=== PATIENT | female | born 2000 | race Caucasian/White ===

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

== ENCOUNTER 2021-02-16 16:55 | Emergency (ER) | payer BC, SELFPAY ==
--- NOTE | 2021-02-16 17:02 | ED.GENADULT ---
HPI - General Adult General Chief complaint: Upper Respiratory Infection Stated complaint: Sore throat,Runny nose Time Seen by Provider: 02/16/21 17:02 Source: patient and RN notes reviewed Mode of arrival: ambulatory Limitations: no limitations History of Present Illness HPI narrative: 20-year-old female presents with complaints of sore throat and runny nose for the past 2-3 days. Ese reports not going to school or work today and being told she needed a COVID-19 test before returning and increasing upper respiratory infection symptoms throughout the last 24 hours. Advil today with little relief. No high fevers, drooling, neck or throat swelling. Pain is bilateral. Hurts to swallow. Exacerbation factors consist of swallowing, eating, and drinking. Rhinorrhea. No nasal congestion. No voice change. No nausea, vomiting, or abdominal pain. Tolerating liquids well. Denies chills, dyspnea, difficulty swallowing, jaw pain, dental pain, facial pain, foreign body sensation, and rash. LMP 02/13/21. Remains active. The patient reports she has not been diagnosed with COVID-19. The patient reports she is not waiting for the results of a COVID-19 lab test. The patient reports she does not have a new or worsening cough or shortness of breath. The patient reports she does not have any loss of taste or smell and diarrhea. Denies recent traveling. Denies concerns for COVID-19 or exposures. At this time, the patient is not suspected of having COVID-19. Some parts of this dictation were generated by voice recognition software and may contain typographical and/or grammatical inaccuracies. Related Data Home Medications Medication Instructions Recorded Confirmed nitrofurantoin monohyd/m-cryst 100 mg PO BID 02/16/21 02/16/21 Allergies Allergy/AdvReac Type Severity Reaction Status Date / Time No Known Allergies Allergy Unverified 02/20/19 15:56 Review of Systems Review of Systems: CONSTITUTIONAL: Denies fever, chills, sweats. EYES: Denies visual changes, redness, discharge. ENT: Denies congestion, otalgia. Complains of sore throat, rhinorrhea. CARDIOVASCULAR: Denies chest pain, palpitations, edema. RESPIRATORY: Denies dyspnea, wheezing, cough. GASTROINTESTINAL: Denies abdominal pain, nausea, vomiting, diarrhea. SKIN: Denies rash or itching. MUSCULOSKELETAL: Denies acute back pain, joint pain, or myalgia. NEUROLOGIC: Denies numbness or focal weakness. PSYCHIATRIC: Denies anxiety or depression. All systems reviewed & are unremarkable except as noted in HPI and below. [facility] Past Medical History Medical History (Updated 02/17/21 @ 00:01 by Shaneka Bae) Right ureteral stone Surgical History Surgical History (Updated 02/16/21 @ 18:56 by FRANDY Camacho) History of lithotripsy Family History Family History (Updated 02/16/21 @ 18:57 by FRANDY Camacho) Father Alive and well Mother Allergies Social History Social History (Updated 02/16/21 @ 18:58 by FRANDY Camacho) Smoking status: Never smoker Tobacco type: cigarettes Second hand tobacco smoke exposure: No Alcohol intake: never Substance use: never Substance use type: does not use Living arrangements: with family Occupation/Education: student Sexual Orientation (if Verbalized by the Patient): Straight or Heterosexual Comments At time of signature, agree with the nurse past medical, surgical, social, and family history. There is no relevant family history pertinent to the presenting complaint. Exam Narrative: GENERAL: This is a well-nourished, well-developed patient, in no apparent distress. Speaks in full sentences without deficits and ambulates with steady gait without dyspnea. HEAD: Normocephalic, atraumatic. EYES: PERRL. Sclera clear/white. Vision is grossly intact. EARS: External ears normal, auditory canals clear and without drainage, TMs normal without perforation. Hearing grossly intact. NOSE: Ext
[2021-02-16 17:05] VITALS: BP 110/71; PULSE 93; RESP 18; TEMP 37; O2SAT 98
[2021-02-17 20:01] LABS: SARS-CoV-2 RNA PCR Negative
== END 2021-02-16 17:37 | disposition home or self-care (01) ==
PROVIDERS: Emergency Provider Nurse Practitioner Family; PCP Family Medicine
DX: J02.9 Acute pharyngitis, unspecified (principal); Z20.822 Contact with and (suspected) exposure to COVID-19
CPT/HCPCS: 87081; 87880; 99213; C9803; G0463; U0003; U0005

== ENCOUNTER → 2021-09-09 13:56 | Outpatient (CLI) | payer BC, SELFPAY ==
--- NOTE | ~2021-09-09 | XR_ITS ---
EXAMINATION: CT abdomen pelvis wo con, XR abdomen/kub 1V DATE: 09/09/2021 14:18 INDICATION: Bilateral kidney stones TECHNIQUE: Computed tomography (CT) of the abdomen and pelvis was performed without intravenous contr ast. The dose-length product was 225.69 mGy-cm. Automated exposure control and iterative reconstructi on technique were employed. KUB. COMPARISON: CT dated 08/24/[address] dated 02/17/2019. FINDINGS: Lung bases are unremarkable. No significant pleural or pericardial effusion. Heart size is normal. There are 3 left renal stones, largest measuring 5 mm. There are 2 nonobstructing right renal stones measuring 2 mm. No ureteral stones are identified. There is an IUD in the uterus. The liver, spleen, pancreas, adrenal glands are unremarkable. Gallbladder is present. Nonobstructive bowel gas pattern. No free air or free fluid. There is mild levoscoliosis. No acute osseous abnormali ty. There is a right pelvic phlebolith which is unchanged dating back to 02/17/2019. KUB: Renal stones are not visualized. IMPRESSION: 1. Nonobstructing bilateral nephrolithiasis. Reviewed, dictated and finalized at location B. IMPRESSION: 1. Nonobstructing bilateral nephrolithiasis.
== END ==
PROVIDERS: Visit Provider Urology
DX: N20.0 Calculus of kidney (principal)
CPT/HCPCS: 74018; 74176

== ENCOUNTER 2022-01-18 10:54 | Emergency (ER) | payer OTHER, BC, SELFPAY ==
--- NOTE | ~2022-01-18 | XR_ITS ---
XR foot LT min 3V 01/18/2022 11:10 Indication: Left foot pain after blunt trauma Procedure: 4 views left foot Comparison: No prior studies for comparison. Findings: There is a small radiodensity medial to the first metatarsal head which could represent an avulsion fracture or foreign body. Lisfranc joint intact. There is mild associated soft tissue swelli ng. No other fracture or traumatic malalignment. Impression: 1: Punctate radiodensity medial to the first metatarsal head which may represent an avulsion fracture or foreign body. Reviewed, dictated and finalized at location L. Impression: 1: Punctate radiodensity medial to the first metatarsal head which may represen t an avulsion fracture or foreign body.
[2022-01-18 11:02] VITALS: BP 116/84; PULSE 78; RESP 20; TEMP 36.4; O2SAT 100
--- NOTE | 2022-01-18 11:24 | ED.LOWEXIN ---
HPI - Extremity Injury (Lower) General Chief Complaint: Extremity Injury, Lower Stated Complaint: INJURED TOE Time Seen by Provider: 01/18/22 11:20 Source: patient Mode of arrival: ambulatory Limitations: no limitations History of Present Illness HPI Narrative: 21-year-old female presented for complaint of left great toe pain after injury today. She states she was working when she dropped a canoe on the area where the toe meets the foot. Endorses bruising and swelling, pain is worse with walking. Denies numbness or tinglingor open wounds. Has not taken anything for symptoms. Related Data Allergies Allergy/AdvReac Type Severity Reaction Status Date / Time No Known Allergies Allergy Unverified 02/20/19 15:56 Review of Systems Review of Systems: CONSTITUTIONAL: Denies body aches, fever, chills CARDIOVASCULAR: Denies chest pain RESPIRATORY: Denies dyspnea. GASTROINTESTINAL: Denies abdominal pain SKIN: Denies rash or open wounds MUSCULOSKELETAL: Reports toe pain NEUROLOGIC: Denies headache All systems reviewed & are unremarkable except as noted in HPI and below PMFSH Past Medical History Medical History Right ureteral stone Surgical History Surgical History History of lithotripsy Family History Family History Father Alive and well Mother Allergies Social History Social History Smoking status: Never smoker Tobacco type: cigarettes Second hand tobacco smoke exposure: No Alcohol intake: never Substance use: never Substance use type: does not use Sexual Orientation (if Verbalized by the Patient): Straight or Heterosexual Comments At time of signature, I have reviewed and agree with nursing past medical, surgical, social and family history unless otherwise noted. Please see nursing chart for further information. There is no relevant family history pertinent to the presenting complaint Exam Narrative: GENERAL: Well-appearing CHEST: Speaks in full sentences. No respiratory distress. HEART: Regular rate and rhythm. Normal and equal peripheral pulses. EXTREMITIES: Left great toe with mild bruising and soft tissue swelling of the MTP joint, no open wounds. Limited ROM due to pain. Normal sensation, no skin tenting, or obvious deformity; pulse palpable and equal bilaterally, skin warm, dry, pink. Capillary refill less than 3 seconds. SKIN: Warm, dry, no rash. NEURO: Alert and oriented x3. PSYCH: Normal mood and affect Course Course Emergency Course: Patient is aware of diagnosis, understands and agrees to treatment plan. Anticipatory guidance given. Patient agrees to follow-up as directed and is aware of reasons to seek care at the emergency department. Portions of this record may have been created with voice recognition software Level of Care: Express Care Visit Vital Signs Vital signs: Vital Signs Temperature 97.6 F 01/18/22 11:02 Pulse Rate 78 01/18/22 11:02 Respiratory Rate 20 01/18/22 11:02 Blood Pressure 116/84 01/18/22 11:02 Pulse Oximetry 100 01/18/22 11:02 Oxygen Delivery Room Air 01/18/22 11:02 Temperature 97.6 F 01/18/22 11:02 Pulse Rate 78 01/18/22 11:02 Respiratory Rate 20 01/18/22 11:02 Blood Pressure 116/84 01/18/22 11:02 Pulse Oximetry 100 01/18/22 11:02 Oxygen Delivery Room Air 01/18/22 11:02 Reviewed MDM - Extremity Injury (Lower) MDM Narrative Medical decision making narrative: Xray reviewed with pt, treatment for avulsion fracture. Low suspicion of FB given mechanism of injury. Advised post op shoe and crutches. Applied per Tech. Advised supportive measures and f/u with electroplater automatic/ortho. v/u. Differential Diagnosis Differential diagnosis: Likely fracture of toe and other (contusion, fo
--- NOTE | 2022-01-18 11:44 | PC.NURSE ---
Ice applied to affected area.
== END 2022-01-18 11:43 | disposition home or self-care (01) ==
PROVIDERS: Emergency Provider Nurse Practitioner Family; PCP Family Medicine
DX: S97.112A Crushing injury of left great toe, initial encounter (principal); W20.8XXA Other cause of strike by thrown, projected or falling object, initial encounter; Y99.0 Civilian activity done for income or pay
CPT/HCPCS: 73630; 99213; G0463

== ENCOUNTER → 2022-01-30 10:42 | Outpatient (CLI) | payer OTHER, SELFPAY ==
--- NOTE | ~2022-01-30 | XR_ITS ---
XR foot LT min 3V 01/30/2022 11:12 Indication: Fracture first metatarsal Procedure: 4 views left foot Comparison: 01/18/2022 Findings: There is a small avulsion fracture medial to the first metatarsal head. Decreased soft tiss ue swelling compared with prior examination. No new fracture or traumatic malalignment. Lisfranc join t intact. Impression: 1: Stable appearance to avulsion fracture medial to the first metatarsal head. Reviewed, dictated and finalized at location A. Impression: 1: Stable appearance to avulsion fracture medial to the first metatarsal head.
== END ==
PROVIDERS: PCP Family Medicine; Visit Provider Family Medicine
DX: S92.312A Displaced fracture of first metatarsal bone, left foot, initial encounter for closed fracture (principal)
CPT/HCPCS: 73630

== ENCOUNTER 2022-11-11 13:32 | Emergency (ER) | payer BC, SELFPAY ==
[2022-11-11 13:35] VITALS: BP 110/80; PULSE 93; RESP 18; TEMP 36.8; O2SAT 100
--- NOTE | 2022-11-11 13:35 | ED.DENTAL ---
HPI - Dental/Oral General Chief complaint: Dental/Oral Stated complaint: MOUTH PAIN Time Seen by Provider: 11/11/22 13:35 Source: patient and RN notes reviewed History of Present Illness HPI Narrative: Patient is a 22-year-old female presents to urgent care with complaints of mouth pain. Patient states that she has had a saliva gland issue in the past which had to be surgically removed to the inside of the lower lip. Patient states that 1 popped up and ruptured over the last couple days most recently. Patient states that she has been taking Tylenol for the pain without much relief. Patient has not seen her ENT. No other acute complaints. No acute distress noted. Patient aware of the plan of care. Some parts of this dictation were generated by voice recognition software and may contain typographical and/or grammatical inaccuracies. Related Data Allergies Allergy/AdvReac Type Severity Reaction Status Date / Time No Known Allergies Allergy Unverified 02/20/19 15:56 Review of Systems Review of Systems: CONSTITUTIONAL: Denies fever, chills, or sweats. EYES: Denies visual changes, redness, or discharge. ENT: Denies rhinorrhea, congestion, sore throat, or otalgia. Reports of a sore to the inside of the mouth CARDIOVASCULAR: Denies chest pain, palpitations, or edema. RESPIRATORY: Denies cough or dyspnea. GASTROINTESTINAL: Denies abdominal pain, nausea, vomiting, or diarrhea. GENITOURINARY: Denies dysuria or hematuria. SKIN: Denies rash or itching. MUSCULOSKELETAL: Denies back pain, joint pain, or myalgia. NEUROLOGIC: Denies headache, numbness, or weakness. All other systems reviewed are negative, except as documented in HPI. [facility] Past Medical History Medical History Right ureteral stone Surgical History Surgical History History of lithotripsy Family History Family History Father Alive and well Mother Allergies Social History Social History Smoking status: Never smoker Tobacco type: cigarettes Second hand tobacco smoke exposure: No Alcohol intake: never Substance use: never Substance use type: does not use Living arrangements: with family Occupation/Education: student Sexual Orientation (if Verbalized by the Patient): Straight or Heterosexual Comments At the time of my signature, I reviewed and agree with the nursing past medical, surgical, social, and family history. There is no relevant family history pertinent to the patient complaint. Exam Narrative: GENERAL: This is a well-nourished, well-developed patient, in no apparent distress. HEAD: normocephalic, atraumatic. EYES: PERRL. Sclera clear/white. Vision is grossly intact. EARS: External ears normal, auditory canals clear and without drainage, TMs normal without perforation. Hearing grossly intact. NOSE: External nose normal with no obvious nasal discharge, nares without redness, no rhinorrhea. THROAT: Mucous membranes moist, posterior pharynx clear. MOUTH: 1 cm closed ulceration to the right inside of the lower lip NECK: Neck supple, SKIN: warm, intact with no suspicious lesions or rash, good texture and turgor. NEURO: awake, alert, and oriented to person, place and time. There were no obvious focal neurologic abnormalities. EXTREMITIES: No clubbing, cyanosis, or edema. Course Course Level of Care: Express Care Visit Vital Signs Vital signs: Vital Signs Temperature 98.2 F 11/11/22 13:35 Pulse Rate 93 11/11/22 13:35 Respiratory Rate 18 11/11/22 13:35 Blood Pressure 110/80 11/11/22 13:35 Pulse Oximetry 100 11/11/22 13:35 Oxygen Delivery Room Air 11/11/22 13:35 Temperature 98.2 F 11/11/22 13:35 Pulse Rate 93 11/11/22 13:35 Respiratory Rate 18 11/11/22 13:35 Blood
== END 2022-11-11 14:00 | disposition home or self-care (01) ==
PROVIDERS: Emergency Provider Nurse Practitioner Family; PCP Nurse Practitioner Family
DX: K12.1 Other forms of stomatitis (principal)
CPT/HCPCS: 99213; G0463

== ENCOUNTER 2022-12-22 15:47 | Emergency (ER) | payer BC, SELFPAY ==
--- NOTE | ~2022-12-22 | XR_ITS ---
EXAMINATION: XR ankle RT min 3V DATE: 12/22/2022 16:13 INDICATION: Nontraumatic right ankle pain TECHNIQUE: Anteroposterior, oblique, mortise, and lateral views of the right ankle were obtained. COMPARISON: None. FINDINGS: Alignment is normal. No fracture. Joint spaces are normal. No cortical erosions or periosteal reactio n. Soft tissues are unremarkable. No ankle joint effusion. IMPRESSION: 1. Negative right ankle radiographs. Reviewed, dictated and finalized at location A.
[2022-12-22 15:53] VITALS: BP 113/82; PULSE 85; RESP 16; TEMP 36.4; O2SAT 99
--- NOTE | 2022-12-22 15:59 | ED.GENADULT ---
HPI - General Adult General Chief complaint: Extremity Problem,Nontraumatic Stated complaint: Rt Ankle Pain Time Seen by Provider: 12/22/22 16:00 Source: patient, RN notes reviewed and old records reviewed Mode of arrival: ambulatory Limitations: no limitations History of Present Illness HPI narrative: 22 year old female who presents to [facility] care with complaints of right ankle pain to lateral aspect of ankle and posterior ankle with increase pain with extension of her foot since with increased symptoms today.. 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 Patient reports that she fractured her right foot last year with no residual problems. Patient reports increased pain with extension of her right foot, noted swelling to lateral aspect of ankle. MD complaint: right ankle lateral and back of ankle Onset (ago): day(s) (day 1 of symptoms) Location: right and lower extremity (ankle) Severity scale (1-10): 4 Treatments prior to arrival: NSAID Related Data Home Medications Medication Instructions Recorded Confirmed No Home Medications 12/22/22 12/22/22 Allergies Allergy/AdvReac Type Severity Reaction Status Date / Time No Known Allergies Allergy Verified 12/22/22 15:58 Review of Systems Review of Systems: CONSTITUTIONAL: Denies fever, chills, or sweats. EYES: Denies visual changes, redness, or discharge. ENT: Denies rhinorrhea, congestion, sore throat, or otalgia. CARDIOVASCULAR: Denies chest pain, palpitations, or edema. RESPIRATORY: Denies cough or dyspnea. GASTROINTESTINAL: Denies abdominal pain, nausea, vomiting, or diarrhea. GENITOURINARY: Denies dysuria or hematuria SKIN: Denies rash or itching. MUSCULOSKELETAL: Denies back pain, positive for right lateral ankle pain with some pain to posterior ankle, or myalgia. NEUROLOGIC: Denies headache, numbness, or weakness. PSYCHIATRIC: Denies anxiety or depression. All systems reviewed & are unremarkable except as noted in HPI and below PMFSH Past Medical History Medical History Right ureteral stone Surgical History Surgical History History of lithotripsy Family History Family History Father Alive and well Mother Allergies Social History Social History Smoking status: Never smoker Tobacco type: cigarettes Second hand tobacco smoke exposure: No Alcohol intake: never Substance use: never Substance use type: does not use Living arrangements: with family Occupation/Education: student Sexual Orientation (if Verbalized by the Patient): Straight or Heterosexual Comments At time of signature, agree with nursing past medical, surgical, social and family history. There is no relevant family history pertinent to the presenting complaint Exam Narrative: GENERAL: Well-appearing, well-nourished, and in no acute distress. HEAD: Normocephalic, atraumatic. EYES: PERRLA and EOMI. ENT: Nares clear, no rhinorrhea or epistaxis. Mucous membranes moist.TM's normal with good light reflex, throat pink NECK: Supple.no lymphadenopathy CHEST: Clear to auscultation. No respiratory distress.SAO2 99% on room air HEART: Regular rate and rhythm. No murmur heard. Normal peripheral pulses. ABDOMEN: Soft, nontender, nondistended, normal active bowel sounds. EXTREMITIES: Normal range of motion. No edema.Exception noted to right ankle lateral aspect swelling with pain and pain posterior ankle, increased pain with extension of foot, denies any tingling or numbness to right foot, nail beds jose briskly foot warm with strong pulses SKIN: Warm, dry, no rash. NEURO: No focal deficits. Alert and oriented x3. Course Course Emergency Course: Patient is aware of diagnosis, unde
== END 2022-12-22 17:03 | disposition home or self-care (01) ==
PROVIDERS: Emergency Provider Registered Nurse; PCP Nurse Practitioner Family
DX: M25.571 Pain in right ankle and joints of right foot (principal)
CPT/HCPCS: 73610; 99213; G0463

== ENCOUNTER 2023-12-20 13:38 | Outpatient (CLI) | payer BC, SELFPAY ==
--- NOTE | ~2023-12-20 | CT_ITS ---
CT abdomen pelvis wo con Ordering provider: Elayne Victoria APRN History: . Bilateral Kidney Stones . Comparison: September 09, 2021 Technique: CT abdomen with IV and without oral contrast. Radiation reduction technique utilized. DLP is 210.37mGy. Findings: VISUALIZED LOWER CHEST: Normal. UPPER ABDOMINAL ORGANS: Liver: Normal. Gallbladder: Contracted. Spleen: Normal. Stomach/duodenum: Normal. Pancreas: Normal. Adrenals: Normal. Kidneys: Tiny stones in the right kidney mid upper and lower poles. Tiny stones in the left kidney mi d and upper pole. No hydronephrotic changes. No definite ureteric stones. calcific density in the le ft side of the pelvis is most likely outside the ureter. Urinary bladder: Normal. VISUALIZED BOWEL AND MESENTERY: No evidence of diverticulitis. Fecal material loaded in the colon sug gestive of constipation. Normal appendix. The bowel is otherwise normal. No free air or free fluid. N o mesenteric lymphadenopathy. RETROPERITONEUM: Normal aorta. No retroperitoneal lymphadenopathy. MUSCULOSKELETAL: The superficial soft tissues are normal. Normal spine. IMPRESSION: Bilateral kidney stones. No hydronephrotic changes. Constipation. Reviewed, dictated and finalized at location A.
== END 2023-12-20 13:39 ==
PROVIDERS: PCP Nurse Practitioner; Visit Provider Nurse Practitioner
DX: N20.0 Calculus of kidney (principal); K59.00 Constipation, unspecified
CPT/HCPCS: 74176